=== PATIENT | male | born 1980 | race Caucasian/White ===

== ENCOUNTER 2018-07-14 08:28 | Emergency (ER) | payer BC, OTHER ==
[2018-07-14] MEDS ORDERED: Sodium Chloride 0.9% 10 ML Syringe FLUSH PRN (08:43)
[2018-07-14] MEDS ORDERED: Sodium Chloride 0.9% 1,000 ML IV ONE ×3 (08:44→19:50)
[2018-07-14] MEDS ORDERED: Ketorolac 30 MG/ML SDV IVPUSH ONE (08:45)
--- NOTE | 2018-07-14 08:46 | EDM.PDOC ---
ED HPI GENERAL MEDICAL PROBLEM - General Stated Complaint: head injury Time Seen by Provider: 07/14/18 08:28 Source of Information: Reports: Patient, Other (Coworker) History Limitations: Reports: Physical Impairment - History of Present Illness INITIAL COMMENTS - FREE TEXT/NARRATIVE: 38 y.o.w.m was brought to the ed by wheel chair by a coworker after he fell 12 feet off a ladder. As per coworker pt was not responding for a while(?). Pt was ashen ortiz, was talking, lungs were clear and his SBP was borderline low in the upper 80s, IV was stared and NS was given wide open while he was evaluated further. His plus was in the upper 50s, C/T/L spine: No step off sign but tender. No stool incontinence,(rectal tone?) his lower extremities felt numb, Pt was unable to move his lower extr. No blood on meatus. Spinal shock is presumed. NS was given wide open and Toradol was given for pain initially. As the pt was treated symptomatically, his vital improved and his ashen ortiz skin color improved to pink, his HR improved and his BP improved to 109/76. Pt c/o now of back pain, left knee pain and bilt heal pain. Second I V could not be started due to poor venal access. No open wound was identified. Pt was brought to imaging department after his vitals were stabilized. Vitals on arrival: BP 88/62 Puls 59, RR 18, Temp 98.2 Pulse ox 100% on RA (?). Onset Date: 07/14/18 Onset Time: 08:00 Duration: Hour(s):, Getting Worse Location: Reports: Neck, Chest, Abdomen, Back, Pelvis, Lower Extremity, Left Quality: Reports: Ache, Dull, Throbbing Severity: Moderate Improves with: Reports: Rest Worsens with: Reports: Movement Context: Reports: Trauma - Related Data Allergies Allergy/AdvReac Type Severity Reaction Status Date / Time No Known Allergies Allergy Verified 07/14/18 09:00 Home Meds: Home Meds Acetaminophen/oxyCODONE [Percocet 325-5 MG] 1 each PO Q4HR PRN #20 tab 07/14/18 [Rx] Past Medical History - Past Health History Medical/Surgical History: Denies Medical/Surgical History Review of Systems - Review of Systems Review Of Systems: See Below Constitutional: Reports: No Symptoms Eyes: Reports: No Symptoms Ears: Reports: No Symptoms Nose: Reports: No Symptoms Mouth/Throat: Reports: No Symptoms Respiratory: Reports: No Symptoms Cardiovascular: Reports: No Symptoms GI/Abdominal: Reports: Abdominal Pain Genitourinary: Reports: No Symptoms Musculoskeletal: Reports: Neck Pain, Back Pain, Leg Pain, Foot Pain, Muscle Pain Skin: Reports: No Symptoms Neurological: Reports: Numbness, Difficulty Walking (due to pain) Psychiatric: Reports: No Symptoms ED EXAM, GENERAL - Physical Exam Exam: See Below Exam Limited By: Physical Impairment General Appearance: Alert, WD/WN, Moderate Distress, Other (palor) Eye Exam: Bilateral Eye: Normal Inspection Ears: Normal External Exam Ear Exam: Bilateral Ear: Auricle Normal Nose: Normal Inspection Throat/Mouth: Normal Inspection, Normal Lips, Normal Gums, Normal Voice, No Airway Compromise Head: Atraumatic, Normocephalic Neck: Normal Inspection Respiratory/Chest: No Respiratory Distress, Lungs Clear, Normal Breath Sounds, No Accessory Muscle Use Cardiovascular: Normal Peripheral Pulses, Regular Rate, Rhythm, No Edema, No Gallop, No JVD, No Murmur, No Rub Peripheral Pulses: 1+: Brachial (L) GI/Abdominal: Normal Bowel Sounds, No Organomegaly, No Abnormal Bruit, Pelvis Stable, Tender (generalized) (Male) Exam: No Hernia Rectal (Males) Exam: Normal Exam Back Exam: Normal Inspection, Decreased Range of Motion Extremities: Leg Pain, Limited Range of Motion (left leg) Neurological: Alert, Oriented, Slow to Respond Psychiatric: Normal Affect, Normal Mood Skin Exam: Warm, Dry, Intact, Pallor Lymphatic: No Adenopathy ED TRAUMA EXTREMITY PROCEDURES - Splinting Left Lower Extremity Splint Site: posterior long splint left leg Pre-Procedure NV Status: Normal Post-Procedure NV Status: Normal Splint Material: Fiberglass Splint Design: Posterior Applied & Form Fitted By: Provider Provider Post-Splint Application NV Check: NV Status Normal, Good Position Complications: No EKG INTERPRETATION EKG Date: 07/14/18 Time: 08:55 Rhythm: NSR Rate (Beats/Min): 64 [place]: Normal P-Wave: Present QRS: Normal ST-T: Normal QT: Normal Comparison: NA - No Prior EKG Course - Vital Signs Text/Narrative:: 38 y.o.w.m was brought to the ed by wheel chair by a coworker after he fell 12 feet off a ladder. As per coworker pt was not responding for a while(?). Pt was ashen ortiz, was talking, lungs were clear and his SBP was borderline low in the upper 80s, IV was stared and NS was given wide open while he was evaluated further. His plus was in the upper 50s, C/T/L spine: No step off sign but tender. No stool incontinence,(rectal tone?) his lower extremities felt numb, Pt was unable to move his lower extr. No blood on meatus. Spinal shock is presumed. NS was given wide open and Toradol was given for pain initially. As the pt was treated symptomatically, his vital improved and his ashen ortiz skin color improved to pink, his HR improved and his BP improved to 109/76. Pt c/o now of back pain, left knee pain and bilt heal pain. Second I V could not be started due to poor venal access. No open wound was identified. Pt was brought to imaging department after his vitals were stabilized. Vitals on arrival: BP 88/62 Puls 59, RR 18, Temp 98.2 Pulse ox 100% on RA (?). PE: 38 y.o.w.m s/p fall 12 feet in spinal shock, recovering well after conservative Tx Imaging: CT head, neck chest, abd. and pelvis were neg, Left heal show a comminuted closed fx, Left knee and right heal were WNL Labs: CBC nl, BMP nl except K was 3.4 UDS was pos for opiates. However, Morphin 1 mg was given in the ed before urine could be obtained. Impression: S/P neurogenic shock, Fall of a ladder 12 feet, comminuted Calcaneous Fx. Hematoma left knee medial aspect. Tx: NS, Toradol, Morphin, , ICE, Long leg splint, crutches, steerable scooter was ordered per prescript . 10.45 am Consultation: Dr. Duenas, Ortho: Ship to [place], will not do Calcaneous Fxs 10.50 am Consultation: Dr. Hearn, Andressa, [facility]: Surgery scheduled to be done Thursday07/19/2018 Dr. Hearn will call Pt for an exact time and date of surgery Reexam: Pt improved well. Please see nursing notes for vitals on Discharge. Plan: D/c'd with his mom with instructions. - Orders/Labs/Meds Orders: Active Orders 24 hr Category Date Time Status Paul Catheter Insertion [Insert Urinary Catheter] [OM. Care 07/14/18 09:00 Ordered PC] Q24H Urinary Catheter Assessment [RC] QSHIFT Care 07/14/18 08:47 Active Ankle Min 3V Rt [CR] Stat Exams 07/14/18 08:53 Taken Cervical Spine wo Cont [CT] Stat Exams 07/14/18 08:55 Taken Chest Abdomen Pelvis w Cont [CT] Stat Exams 07/14/18 08:51 Taken Lower Extremity wo Cont Lt [CT] Stat Exams 07/14/18 12:03 Taken Tibia Fibula Lt [CR] Stat Exams 07/14/18 08:53 Taken PATIENT RETYPE [BBK] Stat Lab 07/14/18 08:32 Results TYPE AND SCREEN [BBK] Stat Lab 07/14/18 08:32 Results Sodium Chloride 0.9% [Saline Flush] Med 07/14/18 08:43 Active 10 ml FLUSH ASDIRECTED PRN Peripheral IV Insertion Adult [OM.PC] Routine Oth 07/14/18 08:43 Ordered EKG 12 Lead [EK] Routine Ther 07/14/18 08:43 Ordered Medication Orders Sodium Chloride (Saline Flush) 10 ml FLUSH ASDIRECTED PRN PRN Reason: Keep Vein Open Last Admin: 07/14/18 10:04 Dose: 10 ml Labs: Laboratory Tests 07/14/18 07/14/18 07/14/18 Range/Units 08:32 08:32 08:32 WBC 11.8 (4.5-12.0) X10-3/uL RBC 5.10 (4.30-5.75) x10(6)uL Hgb 14.8 (11.5-15.5) g/dL Hct 43.3 (30.0-51.3) % MCV 84.8 (80-96) fL MCH 28.9 (27.7-33.6) pg MCHC 34.1 (32.2-35.4) g/dL RDW 12.2 (11.5-15.5) % Plt Count 285 (125-369) X10(3)uL MPV 8.4 (7.4-10.4) fL Neut % (Auto) 54.2 (46-82) % Lymph % (Auto) 35.0 (13-37) % [place] % (Auto) 8.4 (4-12) % Eos % (Auto) 2 (1.0-5.0) % Baso % (Auto) 1 (0-2) % Neut # (Auto) 6.4 (1.6-8.3) # Lymph # (Auto) 4.1 (0.6-5.0) # [place] # (Auto) 1.0 (0.0-1.3) # Eos # (Auto) 0.2 (0.0-0.8) # Baso # (Auto) 0.1 (0.0-0.2) # PT (8.7-11.1) INR (0.89-1.13) Sodium 142 (135-145) mmol/L Potassium 3.4 L (3.5-5.3) mmol/L Chloride 104 (100-110) mmol/L Carbon Dioxide 30 (21-32) mmol/L BUN 14 (7-18) mg/dL Creatinine 1.3 (0.70-1.30) mg/dL Est Cr Clr Drug Dosing TNP Estimated GFR (MDRD) > 60 (>60) BUN/Creatinine Ratio 10.8 (9-20) Glucose 149 H (80-116) mg/dL Calcium 8.7 (8.6-10.2) mg/dL Total Bilirubin 0.5 (0.1-1.3) mg/dL AST 22 (5-25) IU/L ALT 31 (12-36) U/L Alkaline Phosphatase 88 (56-112) IU/L Troponin I (<0.017-0.056) ng/mL Total Protein 6.9 (6.0-8.0) g/dL Albumin 3.8 (3.5-5.2) g/dL Globulin 3.1 g/dL Albumin/Globulin Ratio 1.2 Urine Color (YELLOW) Urine Appearance (CLEAR) Urine pH (5.0-6.5) Ur Specific [place] (1.010-1.025) Urine Protein (NEGATIVE) mg/dL Urine Glucose (UA) (NEGATIVE) mg/dL Urine Ketones (NEGATIVE) mg/dL Urine Occult Blood (NEGATIVE) Urine Nitrite (NEGATIVE) Urine Bilirubin (NEGATIVE) Urine Urobilinogen (NEGATIVE) mg/dL Ur Leukocyte Esterase (NEGATIVE) Urine RBC (0) Urine WBC (0) Ur Squamous Epith Cells (NS,R,O) Urine Bacteria (NS) Urine Opiates Screen (NEGATIVE) Ur Oxycodone Screen (NEGATIVE) Ur Propoxyphene Screen (NEGATIVE) Ur Barbituates Screen (NEGATIVE) Ur Tricyclics Screen (NEGATIVE) Ur Phencyclidine Scrn (NEGATIVE) Ur Amphetamine Screen (NEGATIVE) Urine MDMA Screen (NEGATIVE) U Benzodiazepines Scrn (NEGATIVE) U Cocaine Metab Screen (NEGATIVE) U Marijuana (THC) Screen (NEGATIVE) Ethyl Alcohol < 0.03 (<0.03) % Blood Type Gel Antibody Screen 07/14/18 07/14/18 07/14/18 Range/Units 08:32 08:32 08:32 WBC (4.5-12.0) X10-3/uL RBC (4.30-5.75) x10(6)uL Hgb (11.5-15.5) g/dL Hct (30.0-51.3) % MCV (80-96) fL MCH (27.7-33.6) pg MCHC (32.2-35.4) g/dL RDW (11.5-15.5) % Plt Count (125-369) X10(3)uL MPV (7.4-10.4) fL Neut % (Auto) (46-82) % Lymph % (Auto) (13-37) % [place] % (Auto) (4-12) % Eos % (Auto) (1.0-5.0) % Baso % (Auto) (0-2) % Neut # (Auto) (1.6-8.3) # Lymph # (Auto) (0.6-5.0) # [place] # (Auto) (0.0-1.3) # Eos # (Auto) (0.0-0.8) # Baso # (Auto) (0.0-0.2) # PT 9.9 (8.7-11.1) INR 1.02 (0.89-1.13) Sodium (135-145) mmol/L Potassium (3.5-5.3) mmol/L Chloride (100-110) mmol/L Carbon Dioxide (21-32) mmol/L BUN (7-18) mg/dL Creatinine (0.70-1.30) mg/dL Est Cr Clr Drug Dosing Estimated GFR (MDRD) (>60) BUN/Creatinine Ratio (9-20) Glucose (80-116) mg/dL Calcium (8.6-10.2) mg/dL Total Bilirubin (0.1-1.3) mg/dL AST (5-25) IU/L ALT (12-36) U/L Alkaline Phosphatase (56-112) IU/L Troponin I < 0.017 L (<0.017-0.056) ng/mL Total Protein (6.0-8.0) g/dL Albumin (3.5-5.2) g/dL Globulin g/dL Albumin/Globulin Ratio Urine Color (YELLOW) Urine Appearance (CLEAR) Urine pH (5.0-6.5) Ur Specific [place] (1.010-1.025) Urine Protein (NEGATIVE) mg/dL Urine Glucose (UA) (NEGATIVE) mg/dL Urine Ketones (NEGATIVE) mg/dL Urine Occult Blood (NEGATIVE) Urine Nitrite (NEGATIVE) Urine Bilirubin (NEGATIVE) Urine Urobilinogen (NEGATIVE) mg/dL Ur Leukocyte Esterase (NEGATIVE) Urine RBC (0) Urine WBC (0) Ur Squamous Epith Cells (NS,R,O) Urine Bacteria (NS) Urine Opiates Screen (NEGATIVE) Ur Oxycodone Screen (NEGATIVE) Ur Propoxyphene Screen (NEGATIVE) Ur Barbituates Screen (NEGATIVE) Ur Tricyclics Screen (NEGATIVE) Ur Phencyclidine Scrn (NEGATIVE) Ur Amphetamine Screen (NEGATIVE) Urine MDMA Screen (NEGATIVE) U Benzodiazepines Scrn (NEGATIVE) U Cocaine Metab Screen (NEGATIVE) U Marijuana (THC) Screen (NEGATIVE) Ethyl Alcohol (<0.03) % Blood Type O POSITIVE Gel Antibody Screen Negative 07/14/18 07/14/18 Range/Units 11:02 11:02 WBC (4.5-12.0) X10-3/uL RBC (4.30-5.75) x10(6)uL Hgb (11.5-15.5) g/dL Hct (30.0-51.3) % MCV (80-96) fL MCH (27.7-33.6) pg MCHC (32.2-35.4) g/dL RDW (11.5-15.5) % Plt Count (125-369) X10(3)uL MPV (7.4-10.4) fL Neut % (Auto) (46-82) % Lymph % (Auto) (13-37) % [place] % (Auto) (4-12) % Eos % (Auto) (1.0-5.0) % Baso % (Auto) (0-2) % Neut # (Auto) (1.6-8.3) # Lymph # (Auto) (0.6-5.0) # [place] # (Auto) (0.0-1.3) # Eos # (Auto) (0.0-0.8) # Baso # (Auto) (0.0-0.2) # PT (8.7-11.1) INR (0.89-1.13) Sodium (135-145) mmol/L Potassium (3.5-5.3) mmol/L Chloride (100-110) mmol/L Carbon Dioxide (21-32) mmol/L BUN (7-18) mg/dL Creatinine (0.70-1.30) mg/dL Est Cr Clr Drug Dosing Estimated GFR (MDRD) (>60) BUN/Creatinine Ratio (9-20) Glucose (80-116) mg/dL Calcium (8.6-10.2) mg/dL Total Bilirubin (0.1-1.3) mg/dL AST (5-25) IU/L ALT (12-36) U/L Alkaline Phosphatase (56-112) IU/L Troponin I (<0.017-0.056) ng/mL Total Protein (6.0-8.0) g/dL Albumin (3.5-5.2) g/dL Globulin g/dL Albumin/Globulin Ratio Urine Color Yellow (YELLOW) Urine Appearance Clear (CLEAR) Urine pH 7.0 H (5.0-6.5) Ur Specific [place] 1.010 (1.010-1.025) Urine Protein Negative (NEGATIVE) mg/dL Urine Glucose (UA) Normal (NEGATIVE) mg/dL Urine Ketones Negative (NEGATIVE) mg/dL Urine Occult Blood Negative (NEGATIVE) Urine Nitrite Negative (NEGATIVE) Urine Bilirubin Negative (NEGATIVE) Urine Urobilinogen Normal (NEGATIVE) mg/dL Ur Leukocyte Esterase Negative (NEGATIVE) Urine RBC 0-5 (0) Urine WBC 0-5 (0) Ur Squamous Epith Cells Few H (NS,R,O) Urine Bacteria Rare H (NS) Urine Opiates Screen Positive H (NEGATIVE) Ur Oxycodone Screen Negative (NEGATIVE) Ur Propoxyphene Screen Negative (NEGATIVE) Ur Barbituates Screen Negative (NEGATIVE) Ur Tricyclics Screen Negative (NEGATIVE) Ur Phencyclidine Scrn Negative (NEGATIVE) Ur Amphetamine Screen Negative (NEGATIVE) Urine MDMA Screen Negative (NEGATIVE) U Benzodiazepines Scrn Negative (NEGATIVE) U Cocaine Metab Screen Negative (NEGATIVE) U Marijuana (THC) Screen Negative (NEGATIVE) Ethyl Alcohol (<0.03) % Blood Type Gel Antibody Screen Meds: Medications Generic Name Dose Route Start Last Admin Trade Name Freq PRN Reason Stop Dose Admin Sodium Chloride 10 ml 07/14/18 08:43 07/14/18 10:04 Saline Flush FLUSH 10 ml ASDIRECTED PRN Administration Keep Vein Open Discontinued Medications Generic Name Dose Route Start Last Admin Trade Name Freq PRN Reason Stop Dose Admin Sodium Chloride 1,000 mls @ 999 mls/hr 07/14/18 08:44 07/14/18 08:45 Normal Saline IV 07/14/18 09:44 999 mls/hr .BOLUS ONE Administration Sodium Chloride 1,000 mls @ 999 mls/hr 07/14/18 19:50 Normal Saline IV 07/14/18 20:50 .BOLUS ONE Sodium Chloride 1,000 mls @ 999 mls/hr 07/14/18 09:59 07/14/18 09:50 Normal Saline IV 07/14/18 10:50 999 mls/hr .BOLUS ONE Administration Iopamidol 100 ml 07/14/18 09:02 07/14/18 10:05 Isovue-370 (76%) IV 07/14/18 09:03 100 ml . DIRECTED ONE Administration Ketorolac Tromethamine 30 mg 07/14/18 08:45 07/14/18 08:51 Toradol IVPUSH 07/14/18 08:46 30 mg ONETIME ONE Administration Morphine Sulfate 1 mg 07/14/18 09:04 07/14/18 09:57 Morphine IVPUSH 07/14/18 09:05 1 mg ONETIME ONE Administration Oxycodone/Acetaminophen 2 tab 07/14/18 11:33 07/14/18 11:37 Percocet 325-5 Mg PO 07/14/18 11:34 2 tab ONETIME STA Administration Departure - Departure Time of Disposition: 11:53 Disposition: Home, Self-Care 01 Condition: Good Clinical Impression: Fall on/from ladder, Calcaneal fracture - Discharge Information Prescriptions: Acetaminophen/oxyCODONE [Percocet 325-5 MG] 1 each PO Q4HR PRN #20 tab PRN Reason: for severe pain only Instructions: Calcaneal Fracture Repair Surgery Referrals: PCP,None [Primary Care Provider] - Forms: ED Department Discharge, ED Return to Work/School Form Additional Instructions: Rest, ICE and elevation, please use crutches, no weight bearing, Motrin, Percocet for pain, please call for an appointment for dr. Hearn, call [phone]. Pleas come back if your symptoms get worse acutely. - My Orders Last 24 Hours: My Active Orders 07/14/18 08:32 PATIENT RETYPE [BBK] Stat TYPE AND SCREEN [BBK] Stat 07/14/18 08:43 Sodium Chloride 0.9% [Saline Flush] 10 ml FLUSH ASDIRECTED PRN Peripheral IV Insertion Adult [OM.PC] Routine EKG 12 Lead [EK] Routine 07/14/18 08:47 Urinary Catheter Assessment [RC] QSHIFT 07/14/18 08:51 Chest Abdomen Pelvis w Cont [CT] Stat 07/14/18 08:53 Ankle Min 3V Rt [CR] Stat Tibia Fibula Lt [CR] Stat 07/14/18 08:55 Cervical Spine wo Cont [CT] Stat 07/14/18 09:00 Paul Catheter Insertion [Insert Urinary Catheter] [OM.PC] Q24H 07/14/18 12:03 Lower Extremity wo Cont Lt [CT] Stat - Assessment/Plan Last 24 Hours: My Active Orders 07/14/18 08:32 PATIENT RETYPE [BBK] Stat TYPE AND SCREEN [BBK] Stat 07/14/18 08:43 Sodium Chloride 0.9% [Saline Flush] 10 ml FLUSH ASDIRECTED PRN Peripheral IV Insertion Adult [OM.PC] Routine EKG 12 Lead [EK] Routine 07/14/18 08:47 Urinary Catheter Assessment [RC] QSHIFT 07/14/18 08:51 Chest Abdomen Pelvis w Cont [CT] Stat 07/14/18 08:53 Ankle Min 3V Rt [CR] Stat Tibia Fibula Lt [CR] Stat 07/14/18 08:55 Cervical Spine wo Cont [CT] Stat 07/14/18 09:00 Paul Catheter Insertion [Insert Urinary Catheter] [OM.PC] Q24H 07/14/18 12:03 Lower Extremity wo Cont Lt [CT] Stat
[2018-07-14] MEDS ORDERED: Iopamidol 755 Mg/ML 100 ML Bottle IV ONE (09:02)
[2018-07-14] MEDS ORDERED: Morphine 2 MG/ML Syringe IVPUSH ONE (09:04)
[2018-07-14] MEDS ORDERED: Acetaminophen/oxyCODONE 325-5 MG Tab PO STA (11:33)
== END 2018-07-14 12:35 | disposition home or self-care (01) ==
LOC: FB.ED 08:28
DX: S92.062A Displaced intraarticular fracture of left calcaneus, initial encounter for closed fracture (principal); W11.XXXA Fall on and from ladder, initial encounter
CPT/HCPCS: 29505; 36415; 51702; 71260; 72125; 73590; 73610; 73700; 74177; 80053; 80305; 81001; 84484; 85025; 85610; 86850; 86900; 86901; 93005; 96361; 96374; 96375; 99284; A9270; G0480; J1885; J2270; J7030; Q9967